=== PATIENT | male | born 1940 | race Caucasian/White ===

== ENCOUNTER 2024-06-02 06:22 | Day surgery (SDC) | payer MEDICARE, BC, SELFPAY | END 2024-06-02 13:35 | disposition home or self-care (01) | LOC: GI 06:22 | PROVIDERS: ATTENDING PHYSICIAN Specialist | DX: R13.10 Dysphagia, unspecified (principal); R12 Heartburn; K22.89 Other specified disease of esophagus | CPT/HCPCS: 43239; 88305 ==